=== PATIENT | male | born 1955 | race Hispanic/Latino ===

== ENCOUNTER → 2018-08-20 | Outpatient (CLI) | payer OTHER ==
[~2018-08-20] MED LIST: IOHEXOL 350 MG/ML 100ML INFUS..BTL IV ONE
== END | disposition home or self-care (01) ==
LOC: RAH 08:43
PROVIDERS: ATTEND Internal Medicine Cardiovascular Disease
DX: Z01.818 Encounter for other preprocedural examination (principal); I48.91 Unspecified atrial fibrillation; K44.9 Diaphragmatic hernia without obstruction or gangrene; I51.7 Cardiomegaly
CPT/HCPCS: 71275; Q9967

== ENCOUNTER → 2018-08-28 | Outpatient (CLI) | payer OTHER ==
[~2018-08-28] VITALS: Ht 180.3 cm; Wt 99.8 kg
[~2018-08-28] MED LIST changes: +ALBUTEROL IH; +AMIO200T5 PO; +APIX5TAB PO; +ASCO10007 PO; +ATOR40TA71 PO; +BUDE10.2 IH; +CARV25TA PO; +CHLO25TA3 PO; +CLON0.5T12 PO; +DOCU100C33 PO; +DOXA2TAB2 PO; +FENO160T16 PO; -IOHEXOL 350 MG/ML 100ML INFUS..BTL IV ONE; +IRBE1TAB43 PO; +METF-446 PO; +NIFE60TA71 PO; +PANT40TA25 PO; +SODIUM CHLORIDE 0.9% 1000ML 1,000 ML IV SCH; +SPIR50TA5 PO
[2018-08-28 10:10] VITALS: BP 157/57
[2018-08-28 10:21] LABS: BASOPHILS % (AUTO) 0.2 % (0.0-5.0); EOSINOPHILS % (AUTO) 1.4 % (0.0-8.0); HEMATOCRIT 25.2 % (42-54); LYMPHOCYTES % (AUTO) 21.8 % (21.0-51.0); MEAN CORPUSCULAR HGB CONC 32.5 g/dL (32.0-36.0); MEAN CORPUSCULAR VOLUME 80.2 fL (79-99); MONOCYTES % (AUTO) 12.3 % (3.0-13.0); NEUTROPHILS % (AUTO) 64.3 % (40.0-77.0); PLATELET COUNT (AUTO) 240 K/uL (130-400); RED BLOOD CELL COUNT(AUTO) 3.14 MIL/uL (4.50-6.20); RED CELL DISTRIBUTION WIDTH 16.2 % (11.0-15.5); WHITE BLOOD COUNT (AUTO) 4.4 K/uL (4.8-10.8)
[2018-08-28 10:30] LABS: POTASSIUM 3.6 mmol/L (3.5-5.1)
[2018-08-28 10:34] LABS: INR 1.09 (0.85-1.15); PARTIAL THROMBOPLASTIN TIME 32.2 SEC (26.3-35.5); PROTHROMBIN TIME 11.4 SEC (9.6-11.6)
--- NOTE | 2018-08-29 08:30 | NUR ---
LABS ABNORMAL LABS WBC 4.4 , H&H 8.2/25.2 , BUN 34 , CREA 2.0. REPORTED TO DR. RAMOS, MESSAGE LEFT WITH [facility]. THEY REQUESTED FOR LABS TO BE FAXED, WILL CALL BACK WITH FURTHER ORDERS IF ANY. [facility] STATED WILL SHOW LABS TO WHEN HE ARRIVES TO OFFICE THIS AM.
== END ==
LOC: EDSTATUS 10:00 → EDUNIT# 10:00 → DAH 10:00
PROVIDERS: ATTEND Internal Medicine Cardiovascular Disease
DX: Z01.818 Encounter for other preprocedural examination (principal); I48.0 Paroxysmal atrial fibrillation
CPT/HCPCS: 36415; 80048; 85025; 85610; 85730

== ENCOUNTER → 2018-11-06 | Outpatient (CLI) | payer OTHER ==
[~2018-11-06] VITALS: Ht 180.3 cm; Wt 102.2 kg
[~2018-11-06] MED LIST changes: +ALBU0.63 IH; +iron PO
[2018-11-06 10:25] VITALS: BP 153/57
[2018-11-06 10:39] LABS: BASOPHILS % (AUTO) 0.5 % (0.0-5.0); EOSINOPHILS % (AUTO) 1.2 % (0.0-8.0); HEMATOCRIT 31.8 % (42-54); LYMPHOCYTES % (AUTO) 16.8 % (21.0-51.0); MEAN CORPUSCULAR HGB CONC 33.7 g/dL (32.0-36.0); MONOCYTES % (AUTO) 7.4 % (3.0-13.0); NEUTROPHILS % (AUTO) 74.1 % (40.0-77.0); PLATELET COUNT (AUTO) 195 K/uL (130-400); RED BLOOD CELL COUNT(AUTO) 3.46 MIL/uL (4.50-6.20); RED CELL DISTRIBUTION WIDTH 19.1 % (11.0-15.5); WHITE BLOOD COUNT (AUTO) 5.9 K/uL (4.8-10.8)
[2018-11-06 10:43] LABS: CREATININE 1.8 mg/dL (0.5-1.5); POTASSIUM 4.1 mmol/L (3.5-5.1)
[2018-11-06 11:00] LABS: INR 1.1 (0.85-1.15); PARTIAL THROMBOPLASTIN TIME 32.9 SEC (26.3-35.5); PROTHROMBIN TIME 11.5 SEC (9.6-11.6)
--- NOTE | 2018-11-07 11:13 | NUR ---
lab abnormal labs faxed to Dr. Garibay for review as per Dinorah. waiting for further orders. Also per Dinorah Garibay will bring CD am of procedure of CT Angio .
--- NOTE | 2018-11-07 15:44 | NUR ---
LABS RECEIVED CALL BACK DUE TO ABNORMAL LABS. PROCEDURE CANCELLED, PATIENT WILL FOLLOW UP WITH DR. RAMOS
== END | disposition home or self-care (01) ==
LOC: EDSTATUS 10:00 → DAH 10:00
PROVIDERS: ATTEND Internal Medicine Cardiovascular Disease
DX: Z01.818 Encounter for other preprocedural examination (principal); I48.0 Paroxysmal atrial fibrillation; F17.210 Nicotine dependence, cigarettes, uncomplicated; Z79.01 Long term (current) use of anticoagulants; Z79.84 Long term (current) use of oral hypoglycemic drugs; Z72.89 Other problems related to lifestyle; Z82.49 Family history of ischemic heart disease and other diseases of the circulatory system; Z83.3 Family history of diabetes mellitus; Z82.3 Family history of stroke
CPT/HCPCS: 36415; 80048; 85025; 85610; 85730

== ENCOUNTER 2018-11-20 05:30 | Day surgery (SDC) | payer OTHER ==
[~2018-11-20] VITALS: Ht 185.4 cm; Wt 104.0 kg
[~2018-11-20 05:30] MED LIST changes: -ALBUTEROL IH; -ASCO10007 PO; -DOCU100C33 PO; -SODIUM CHLORIDE 0.9% 1000ML 1,000 ML IV SCH
[2018-11-20] MEDS ORDERED: SODIUM CHLORIDE 0.9% 1000ML 1,000 ML IV ONE (05:40)
[2018-11-20 05:56] VITALS: BP 128/42
[2018-11-20] MEDS ORDERED: PROPOFOL 10 MG/ML 20ML VIAL IV ONE ×2 (06:40→06:56)
[2018-11-20] MEDS ORDERED: LIDOCAINE HCL 1% 20 ML VIAL ONE (06:40)
[2018-11-20 07:00] VITALS: BP 99/39
[2018-11-20 07:05] VITALS: BP 96/48
[2018-11-20 07:15] VITALS: BP 115/55
[2018-11-20] MEDS ORDERED: SIMETHICONE 40 MG/0.6 ML ML ONE (07:26)
== END 2018-11-20 07:31 | disposition home or self-care (01) ==
LOC: DAH 05:30 → ENDO 05:30
PROVIDERS: ATTEND Internal Medicine
DX: K31.7 Polyp of stomach and duodenum (principal); K29.50 Unspecified chronic gastritis without bleeding; K44.9 Diaphragmatic hernia without obstruction or gangrene; K31.89 Other diseases of stomach and duodenum; K22.8 Other specified diseases of esophagus; D50.9 Iron deficiency anemia, unspecified; J45.909 Unspecified asthma, uncomplicated; I10 Essential (primary) hypertension; I25.10 Atherosclerotic heart disease of native coronary artery without angina pectoris; D64.9 Anemia, unspecified; Z79.899 Other long term (current) drug therapy; F32.9 Major depressive disorder, single episode, unspecified; F41.9 Anxiety disorder, unspecified; F17.200 Nicotine dependence, unspecified, uncomplicated
CPT/HCPCS: 43239; 43251; 82948 ×2; A4606; J2704 ×2; J7030

== ENCOUNTER → 2022-03-22 | Outpatient (CLI) | payer OTHER ==
[~2022-03-22] MED LIST changes: -AMIO200T5 PO; +AMIO200T68 PO; -CLON0.5T12 PO; +CLON0.5T4 PO; +NIFE-39 PO; -NIFE60TA71 PO; -PANT40TA25 PO; +PANT40TA54 PO; +REGADENOSON 0.4 MG/5 ML PF SYG IVP SCH
== END | disposition home or self-care (01) ==
LOC: SHCH 03-21 07:33
PROVIDERS: ATTEND Internal Medicine Cardiovascular Disease
DX: I51.7 Cardiomegaly (principal); R07.9 Chest pain, unspecified
CPT/HCPCS: 78452; 96374; 93017; J2785; A9500 ×2